=== PATIENT | female | born 1970 | race Caucasian/White ===

== ENCOUNTER → 2016-07-30 | Outpatient (CLI) | payer BC, OTHER ==
[2016-07-30 08:27] LABS: BASO % 0.7 % (0.0-1.0); EOS # 0.1 K/mm3 (0.0-0.50); EOS % 1.7 % (0.0-3.0); LARGE UNSTAINED CELL # 0.1 K/mm3 (0.0-0.4); LARGE UNSTAINED CELL % 3.5 % (0.0-4.0); LYMPH # 1.5 K/mm3 (1.5-4.5); LYMPH % 35.2 % (24.0-44.0); MEAN CORPUSCULAR HGB CONC 32.4 g/dl (32.0-36.5); MEAN CORPUSCULAR VOLUME 95.8 fl (80.0-96.0); MONO # 0.3 K/mm3 (0.0-0.8); MONO % 7.8 % (0.0-5.0); PLATELET COUNT, AUTOMATED 274 k/mm3 (150-450); RED CELL DISTRIBUTION WIDTH 12.5 % (11.5-14.5); WHITE BLOOD COUNT 3.8 K/mm3 (4.0-10.0)
[2016-07-30 08:56] LABS: ALBUMIN 3.7 GM/DL (3.2-5.2); ALBUMIN/GLOBULIN RATIO 1.37 (1.00-1.93); ALKALINE PHOSPHATASE 63 U/L (45-117); ALT/SGPT 22 U/L (12-78); ANION GAP 8 MEQ/L (8-16); AST/SGOT 23 U/L (15-37); BILIRUBIN,TOTAL 0.3 MG/DL (0.2-1.0); BLOOD UREA NITROGEN 13 MG/DL (7-18); CALCIUM LEVEL 8.5 MG/DL (8.5-10.1); CARBON DIOXIDE LEVEL 28 MEQ/L (21-32); CHLORIDE LEVEL 108 MEQ/L (98-107); CHOLESTEROL LEVEL 174 MG/DL (<200); CREATININE FOR GFR 0.68 MG/DL (0.55-1.02); GLOMERULAR FILTRATION RATE > 60.0 (>58); GLUCOSE, FASTING 90 MG/DL (70-105); POTASSIUM SERUM 4.1 MEQ/L (3.5-5.1); SODIUM LEVEL 144 MEQ/L (136-145); TOTAL PROTEIN 6.4 GM/DL (6.4-8.2); TRIGLYCERIDES LEVEL 61 MG/DL (<150)
[2016-07-30 09:40] LABS: FOLATE > 24.0 NG/ML; VITAMIN B12 LEVEL 443 PG/ML
== END ==
LOC: M LAB 07:55
PROVIDERS: ATTEND Emergency Medicine
DX: Z98.84 Bariatric surgery status (principal)

== ENCOUNTER → 2017-03-29 | Outpatient (CLI) | payer BC, OTHER ==
[2017-04-01 00:08] LABS: HSV TYPE I IgM AB <1:10 titer (<1:10); HSV TYPE II IgM ABY <1:10 titer (<1:10)
== END ==
LOC: M LAB 10:23
PROVIDERS: ATTEND Nurse Practitioner Women's Health
DX: Z11.3 Encounter for screening for infections with a predominantly sexual mode of transmission (principal)

== ENCOUNTER → 2017-09-15 | Outpatient (CLI) | payer BC | LOC: M RAD 10:08 | DX: N92.1 Excessive and frequent menstruation with irregular cycle (principal); N83.202 Unspecified ovarian cyst, left side | CPT/HCPCS: 76856 ==

== ENCOUNTER → 2018-05-02 | Outpatient (REF) | payer BC ==
[2018-05-02 14:12] LABS: BASO % 0.4 % (0.0-1.0); EOS # 0.1 10^3/uL (0.0-0.50); HEMATOCRIT 35.1 % (36.0-47.0); HEMOGLOBIN 11.9 g/dl (12.0-15.5); IMMATURE GRANULOCYTE % 0.4 % (0-3.0); LYMPH # 1.4 10^3/uL (1.5-4.5); MEAN CORPUSCULAR HEMOGLOBIN 33.2 pg (27.0-33.0); MEAN CORPUSCULAR HGB CONC 33.9 g/dl (32.0-36.5); MONO # 0.4 10^3/uL (0.0-0.8); MONO % 9.1 % (0.0-5.0); NEUTROPHILS % 61.1 % (36.0-66.0); PLATELET COUNT, AUTOMATED 254 10^3/uL (150-450); RED BLOOD COUNT 3.58 10^6/uL (4.00-5.40); RED CELL DISTRIBUTION WIDTH 11.9 % (11.5-14.5); WHITE BLOOD COUNT 4.8 10^3/uL (4.0-10.0)
[2018-05-02 14:19] LABS: FERRITIN 21 NG/ML (8-252); IRON (FE) 143 UG/DL (50-170); PERCENT SATURATION 45.8 % (13.2-45.0); TOTAL IRON BINDING CAPACITY 312 UG/DL (250-450)
[2018-05-02 14:26] LABS: VITAMIN B12 LEVEL 762 PG/ML
[2018-05-02 14:27] LABS: FOLATE 12.6 NG/ML
== END ==
LOC: M LABDRAW1 12:48
DX: M79.662 Pain in left lower leg (principal)

== ENCOUNTER → 2018-06-05 | Outpatient (CLI) | payer BC ==
[~2018-06-05] MED LIST: FERR325T3 PO; FLIN1CHW PO; FLUO40CA; LORA1TAB12; PANT40TA3; VITA500T PO; VITA500T3 PO
[2018-06-05 15:08] LABS: INR 0.87; PROTHROMBIN TIME 11.9 SECONDS (12.1-14.4)
== END ==
LOC: M LAB 14:20
PROVIDERS: ATTEND Physician Assistant
DX: S80.10XA Contusion of unspecified lower leg, initial encounter (principal); X58.XXXA Exposure to other specified factors, initial encounter; Y92.89 Other specified places as the place of occurrence of the external cause

== ENCOUNTER → 2019-03-22 | Outpatient (CLI) | payer BC ==
[~2019-03-22] MED LIST changes: +CYAN500T8 PO; -VITA500T3 PO
[2019-03-22 08:46] LABS: BASO # 0.1 10^3/uL (0.0-0.2); BASO % 1.1 % (0.0-1.0); EOS # 0.1 10^3/uL (0.0-0.5); EOS % 1.1 % (0.0-3.0); HEMATOCRIT 36.1 % (36.0-47.0); LYMPH # 1.6 10^3/uL (1.5-5.0); MEAN CORPUSCULAR HEMOGLOBIN 33.3 pg (27.0-33.0); MEAN CORPUSCULAR HGB CONC 33.2 g/dl (32.0-36.5); MEAN CORPUSCULAR VOLUME 100.3 fl (80.0-96.0); MONO # 0.5 10^3/uL (0.0-0.8); NEUTROPHILS # 2.4 10^3/uL (1.5-8.5); NEUTROPHILS % 51.8 % (36.0-66.0); PLATELET COUNT, AUTOMATED 250 10^3/uL (150-450); WHITE BLOOD COUNT 4.5 10^3/uL (4.0-10.0)
[2019-03-22 09:22] LABS: ALBUMIN 3.8 GM/DL (3.2-5.2); ALT/SGPT 21 U/L (12-78); BILIRUBIN,TOTAL 0.4 MG/DL (0.2-1.0); BLOOD UREA NITROGEN 17 MG/DL (7-18); CALCIUM LEVEL 8.8 MG/DL (8.5-10.1); CARBON DIOXIDE LEVEL 28 MEQ/L (21-32); CHLORIDE LEVEL 107 MEQ/L (98-107); CHOLESTEROL LEVEL 173 MG/DL (<200); CHOLESTEROL RISK RATIO 1.821 (<5); CREATININE FOR GFR 0.66 MG/DL (0.55-1.30); GLOMERULAR FILTRATION RATE > 60.0 (>58); GLUCOSE, FASTING 91 MG/DL (70-100); HDL CHOLESTEROL 95 MG/DL (>40); LDL CHOLESTEROL 61 MG/DL (<100); NON-HDL-C 78 MG/DL; POTASSIUM SERUM 4.4 MEQ/L (3.5-5.1); SODIUM LEVEL 141 MEQ/L (136-145); THYROID STIMULATING HORMONE 0.897 uIU/ML (0.358-3.740); TOTAL PROTEIN 6.9 GM/DL (6.4-8.2); TRIGLYCERIDES LEVEL 84 MG/DL (<150)
== END ==
LOC: M LAB 08:08
PROVIDERS: ATTEND Physician Assistant
DX: Z00.00 Encounter for general adult medical examination without abnormal findings (principal); Z98.84 Bariatric surgery status

== ENCOUNTER → 2019-12-11 | Outpatient (CLI) | payer BC ==
[~2019-12-11] MED LIST changes: -LORA1TAB12; +LORA1TAB4; +VITA-243 PO; -VITA500T PO
[2019-12-11 18:53] LABS: BASO % 0.7 % (0.0-1.0); EOS % 0.7 % (0.0-3.0); HEMATOCRIT 36.8 % (36.0-47.0); HEMOGLOBIN 12.4 g/dl (12.0-15.5); LYMPH # 1.9 10^3/uL (1.5-5.0); LYMPH % 35.2 % (24.0-44.0); MEAN CORPUSCULAR HGB CONC 33.7 g/dl (32.0-36.5); MEAN CORPUSCULAR VOLUME 97.9 fl (80.0-96.0); MONO # 0.4 10^3/uL (0.0-0.8); MONO % 7.8 % (0.0-5.0); NEUTROPHILS % 55.4 % (36.0-66.0); PLATELET COUNT, AUTOMATED 276 10^3/uL (150-450); RED BLOOD COUNT 3.76 10^6/uL (4.00-5.40); WHITE BLOOD COUNT 5.4 10^3/uL (4.0-10.0)
[2019-12-11 19:10] LABS: HEMOGLOBIN A1c 5.1 %
[2019-12-11 19:23] LABS: ALBUMIN 3.9 GM/DL (3.2-5.2); ALT/SGPT 22 U/L (12-78); BILIRUBIN,TOTAL 0.3 MG/DL (0.2-1.0); BLOOD UREA NITROGEN 14 MG/DL (7-18); CARBON DIOXIDE LEVEL 28 MEQ/L (21-32); CHLORIDE LEVEL 107 MEQ/L (98-107); CREATININE FOR GFR 0.59 MG/DL (0.55-1.30); GLOMERULAR FILTRATION RATE > 60.0 (>51); GLUCOSE, FASTING 82 MG/DL (70-100); POTASSIUM SERUM 4.7 MEQ/L (3.5-5.1); SODIUM LEVEL 139 MEQ/L (136-145); TOTAL PROTEIN 7.1 GM/DL (6.4-8.2)
== END ==
LOC: M LAB 16:31
PROVIDERS: ATTEND Physician Assistant
DX: F43.23 Adjustment disorder with mixed anxiety and depressed mood (principal); K21.9 Gastro-esophageal reflux disease without esophagitis; Z98.84 Bariatric surgery status

== ENCOUNTER 2020-02-25 10:35 | Emergency (ER) | payer BC ==
[~2020-02-25] VITALS: Ht 165.1 cm; Wt 102.3 kg
[~2020-02-25 10:35] MED LIST changes: +PANT40TA29; -PANT40TA3
[2020-02-25] MEDS ORDERED: NS 1,000 ML IV ONE (11:00)
[2020-02-25] MEDS ORDERED: WELLTAB40 PO (11:09)
--- NOTE | 2020-02-25 11:27 | REPVR ---
PROCEDURE INFORMATION: Exam: XR Chest, 1 View Exam date and time: 02/25/2020 11:08 AM Age: 49 years old Clinical indication: Other: Palpitations; Additional info: Chest pain TECHNIQUE: Imaging protocol: XR of the chest Views: 1 view. COMPARISON: CR CHEST 2 VIEW 11/23/2015 12:02 PM FINDINGS: Lungs: Question new ovoid nodular opacity at the medial left base measuring up to 3.5 cm versus superimposition of shadows. The lungs are otherwise clear. Pleural space: Unremarkable. No pleural effusion. No pneumothorax. Heart/Mediastinum: The cardiomediastinal silhouette is fairly stable in appearance, allowing for differences in technique. Bones/joints: Unremarkable. IMPRESSION: Question 3.5 cm ovoid nodular opacity at the medial left base versus superimposition of shadows, new since 11/23/15. Correlate with PA and lateral views for better assessment if CT is not performed. Electronically signed by: Maximilian Agudelo On 02/25/2020 11:27:12 AM
[2020-02-25 11:49] LABS: BASO % 0.6 % (0.0-1.0); EOS # 0.1 10^3/uL (0.0-0.5); HEMATOCRIT 39.5 % (36.0-47.0); HEMOGLOBIN 13.4 g/dl (12.0-15.5); LYMPH # 1.4 10^3/uL (1.5-5.0); LYMPH % 27.1 % (24.0-44.0); MEAN CORPUSCULAR HEMOGLOBIN 32.5 pg (27.0-33.0); MEAN CORPUSCULAR HGB CONC 33.9 g/dl (32.0-36.5); MEAN CORPUSCULAR VOLUME 95.9 fl (80.0-96.0); MONO # 0.4 10^3/uL (0.0-0.8); MONO % 7.9 % (0.0-5.0); NEUTROPHILS # 3.2 10^3/uL (1.5-8.5); NEUTROPHILS % 63.2 % (36.0-66.0); PLATELET COUNT, AUTOMATED 268 10^3/uL (150-450); RED BLOOD COUNT 4.12 10^6/uL (4.00-5.40); WHITE BLOOD COUNT 5.1 10^3/uL (4.0-10.0)
[2020-02-25 12:01] LABS: AMPHETAMINES LEVEL URINE NEGATIVE (NEGATIVE); BARBITURATES URINE NEGATIVE (NEGATIVE); BENZODIAZEPINES URINE NEGATIVE (NEGATIVE); CANNABINOIDS URINE NEGATIVE (NEGATIVE); COCAINE METABOLITE URINE NEGATIVE (NEGATIVE); METHADONE URINE NEGATIVE (NEGATIVE); OPIATES URINE NEGATIVE (NEGATIVE); PHENCYCLIDINE URINE NEGATIVE (NEGATIVE)
[2020-02-25 12:02] LABS: INR 1.02; PROTHROMBIN TIME 13.6 SECONDS (11.8-14.0)
[2020-02-25 12:03] LABS: PARTIAL THROMBOPLASTIN TIME 27.8 SECONDS (25.0-38.4)
[2020-02-25 12:10] LABS: ALT/SGPT 17 U/L (12-78); BILIRUBIN,DIRECT 0.2 MG/DL (0.0-0.2); BILIRUBIN,TOTAL 0.4 MG/DL (0.2-1.0); BLOOD UREA NITROGEN 9 MG/DL (7-18); CALCIUM LEVEL 9.3 MG/DL (8.5-10.1); CARBON DIOXIDE LEVEL 26 MEQ/L (21-32); CHLORIDE LEVEL 110 MEQ/L (98-107); CK-MB VALUE MASS 1.9 NG/ML (<3.6); CPK CREATINE PHOSPHOKINASE 100 U/L (26-192); CREATININE FOR GFR 0.63 MG/DL (0.55-1.30); ETHYL ALCOHOL (ETHANOL) < 0.003 % (0.000-0.010); FREE T4 1.03 NG/DL (0.76-1.46); GLOMERULAR FILTRATION RATE > 60.0 (>51); GLUCOSE, FASTING 105 MG/DL (70-100); LIPASE 59 U/L (73-393); MAGNESIUM LEVEL 2.1 MG/DL (1.8-2.4); NT-PRO BNP 80 PG/ML (<125); POTASSIUM SERUM 4.3 MEQ/L (3.5-5.1); SODIUM LEVEL 141 MEQ/L (136-145); TROPONIN I 0.05 NG/ML (< 0.10)
[2020-02-25 12:35] LABS: ERYTHROCYTE SEDIMENTATION RATE 6 mm/hr (0-30)
[2020-02-25] MEDS ORDERED: ISOVUE-370 76% 100ML VIAL As Ordered ONE (13:03)
--- NOTE | 2020-02-25 13:41 | REPVR ---
PROCEDURE INFORMATION: Exam: CT Angiography Chest With Contrast Exam date and time: 02/25/2020 1:26 PM Age: 49 years old Clinical indication: Tachypnea; Additional info: Tachycardia TECHNIQUE: Imaging protocol: Computed tomographic angiography of the chest with intravenous contrast. 3D rendering (Not supervised by radiologist): MIP and/or 3D reconstructed images were created by the technologist. Radiation optimization: All CT scans at this facility use at least one of these dose optimization techniques: automated exposure control; mA and/or kV adjustment per patient size (includes targeted exams where dose is matched to clinical indication); or iterative reconstruction. Contrast material: ISOVUE 370; Contrast volume: 100 ml; Contrast route: INTRAVENOUS (IV); COMPARISON: CR PORTABLE CHEST X-RAY 02/25/2020 11:02 AM FINDINGS: Pulmonary arteries: The peripheral pulmonary arteries are not well opacified. No central embolus is identified. Aorta: The thoracic aorta is nonaneurysmal. Lungs: There is mild bibasilar atelectasis/scarring. The lungs are otherwise clear. The central airways appear patent. Pleural space: Unremarkable. No pneumothorax. No pleural effusion. Heart: The RV/LV ratio is less than 1. Lymph nodes: Unremarkable. No enlarged lymph nodes. Gallbladder and bile ducts: Cholecystectomy clips are present. Stomach and bowel: There are operative changes of the proximal stomach, probably gastric bypass.There is a small hiatal hernia. Bones/joints: Degenerative changes involve the spine. Soft tissues: Unremarkable. IMPRESSION: 1. No central pulmonary embolus identified, with the peripheral pulmonary arteries not well opacified. No evidence for cardiogenic compromise. 2. No acute pulmonary disease. 3. Small hiatal hernia. This may account for opacity on radiographs of the same day. Electronically signed by: Maximilian Agudelo On 02/25/2020 13:41:25 PM
[2020-02-25] MEDS ORDERED: METO1TAB87 PO (14:13)
[2020-02-25] MEDS ORDERED: METOPROLOL TART 25 MG TABLET PO ONE (14:15)
[2020-02-25 14:17] VITALS: BP 139/81
[2020-02-25 15:03] VITALS: BP 127/67
--- NOTE | 2020-02-27 10:56 | ED PDOC ---
Post-Departure Follow-Up cxr faxed to melodie bhatia for fu Jeyson Pacheco MD Feb 27, 2020 10:56
--- NOTE | 2020-02-29 16:00 | ECGEPIP ---
[facility] - ED Test Date: 2020-02-25 Pat Name: LOTUS DONALDSON Department: Room: - Gender: Female [employer]: arslan : 1970 Requested By: NORA Wilson Order Number: [id number] Reading MD: Ida Vásquez Measurements Intervals [place] Rate: 115 P: 17 DC: 154 QRS: 37 QRSD: 77 T: 18 QT: 316 QTc: 438 Interpretive Statements SINUS TACHYCARDIA ABNORMAL RHYTHM ECG SEE SCANNED DOWNTIME REPORT
== END 2020-02-25 15:07 | disposition home or self-care (01) ==
LOC: M ED 10:35 → EDBD 10:35 → M ED 15:07
DX: I47.1 Supraventricular tachycardia (principal); R00.0 Tachycardia, unspecified; R94.31 Abnormal electrocardiogram [ECG] [EKG]; F41.9 Anxiety disorder, unspecified; F32.9 Major depressive disorder, single episode, unspecified; N32.81 Overactive bladder; Z98.84 Bariatric surgery status
CPT/HCPCS: 36415; 71045; 71275; 80048; 80076; 80307; 81001; 82550; 82553; 83690; 83735; 83880; 84439; 84443; 84484; 85025; 85610; 85652; 85730; 86140; 87040; 93005; 93041; 94760; 96360; 96361; 99284; G0480; Q9967

== ENCOUNTER → 2020-03-19 | Outpatient (RCR) | payer BC ==
[~2020-03-19] MED LIST changes: +METO1TAB87 PO; +WELLTAB40 PO
== END ==
LOC: M PT 03-12 12:32
PROVIDERS: ATTEND Orthopaedic Surgery
DX: M54.5 Low back pain (principal); Z87.39 Personal history of other diseases of the musculoskeletal system and connective tissue

== ENCOUNTER 2020-04-14 12:00 | Outpatient (RCR) | payer BC | END 2020-04-19 | LOC: M PT 12:00 | PROVIDERS: ATTEND Orthopaedic Surgery | DX: M54.5 Low back pain (principal); Z87.39 Personal history of other diseases of the musculoskeletal system and connective tissue ==

== ENCOUNTER → 2020-04-23 | Outpatient (CLI) | payer SELFPAY | LOC: M LABSMTC 10:08 | PROVIDERS: ATTEND Pediatrics | DX: Z20.828 Contact with and (suspected) exposure to other viral communicable diseases (principal) ==

== ENCOUNTER 2020-05-06 12:59 | Outpatient (RCR) | payer BC ==
[~2020-05-06 12:59] MED LIST changes: +CYAN500T14 PO; -CYAN500T8 PO
== END 2020-05-19 ==
LOC: M PT 12:59
PROVIDERS: ATTEND Orthopaedic Surgery
DX: M54.16 Radiculopathy, lumbar region (principal)

== ENCOUNTER → 2020-05-06 | Outpatient (CLI) | payer BC ==
--- NOTE | 2020-05-07 01:16 | REPVR ---
PROCEDURE INFORMATION: Exam: MR Lumbar Spine Without Contrast. Exam date and time: 05/06/2020 7:02 PM Age: 49 years old Clinical indication: Low back pain; Additional info: Ddd, low back pain TECHNIQUE: Imaging protocol: Multiplanar magnetic resonance images of the lumbar spine without intravenous contrast. COMPARISON: No relevant prior studies available. FINDINGS: Vertebrae: The lumbar vertebral bodies are normal in height. There is a focus of hypointensity within the left L5 pars process, and spondylolysis is considered. Grade 1 anterolisthesis of L4 on L5. Scattered foci of T1 hyperintensity are identified within lumbar and lower thoracic vertebral bodies, consistent with hemangiomas or focal depositions of fatty marrow. There is a [id number] compression fracture involving the T12 vertebral body, with a prominent concavity of the superior endplate and anterior wedging. No acute marrow edema is identified, consistent with a chronic deformity. Marrow edema is identified adjacent to the bilateral L5-S1 facet joints. Additional marrow edema is seen within the bilateral L4 pedicles and bone marrow adjacent to the superior articulating L4 facet on the left side. These findings are likely secondary to arthropathy, post-traumatic, or reactive. Infection is within the differential. Spinal cord: The distal end of the conus medullaris ends at T12-L1, normal in position. Multilevel findings: Degenerative disc disease is noted at multiple lumbar and lower thoracic levels, with a decrease in the T2 signal intensity of the discs as well as disc bulging. L1-L2: Minimal disc bulging, without significant narrowing of the thecal sac or neural foramina. Mild bilateral facet arthropathy. L2-L3: Mild bilateral facet arthropathy. Minimal disc bulging, without significant narrowing of the thecal sac or neural foramina. L3-L4: Mild bilateral facet arthropathy. Minimal disc bulging, without significant narrowing of the thecal sac or neural foramina. L4-L5: Bilateral facet arthropathy with hypertrophy of the ligamentum flavum. A broad-based disc bulge is identified causing flattening of the ventral border of the thecal sac without significant overall narrowing. There is mild bulging into the neural foramina, without significant narrowing. L5-S1: Bilateral facet arthropathy. Minimal disc bulging, without significant narrowing of the thecal sac or neural foramina. Sacrum/coccyx: Small sacral meningeal cysts are visualized. Reproductive: T2 hyperintense follicles or small cysts are partially visualized within the left adnexa. Soft tissues: Mild edema within the subcutaneous tissues posterior to the lumbar spine. IMPRESSION: 1. Marrow edema is identified adjacent to the bilateral L5-S1 facet joints. Additional marrow edema is seen within the bilateral L4 pedicles and bone marrow adjacent to the superior articulating L4 facet on the left side. These findings are likely secondary to arthropathy, post-traumatic, or reactive. Infection is within the differential. Clinical correlation recommended. 2. There is a focus of hypointensity within the left L5 pars process, and spondylolysis is considered. 3. Grade 1 anterolisthesis of L4 on L5. 4. Degenerative changes are noted at multiple lumbar and lower thoracic levels, as described above. 5. No significant narrowing of the thecal sac or neural foramina at any lumbar level. 6. Chronic compression deformity involving the T12 vertebral body, with a prominent focal concavity of the superior endplate. 7. Additional findings described above. Electronically signed by: Charlie Nayak On 05/07/2020 01:15:44 AM
== END ==
LOC: M RAD 18:02
PROVIDERS: ATTEND Physician Assistant
DX: M51.26 Other intervertebral disc displacement, lumbar region (principal); M51.36 Other intervertebral disc degeneration, lumbar region; M51.34 Other intervertebral disc degeneration, thoracic region

== ENCOUNTER 2020-05-21 16:39 | Outpatient (RCR) | payer BC | END 2020-06-19 | LOC: M PT 16:39 | PROVIDERS: ATTEND Orthopaedic Surgery | DX: Z51.89 Encounter for other specified aftercare (principal); M54.5 Low back pain ==

== ENCOUNTER → 2020-07-02 | Outpatient (CLI) | payer BC ==
[2020-07-02 18:54] LABS: BLOOD UREA NITROGEN 10 MG/DL (7-18); CREATININE FOR GFR 0.57 MG/DL (0.55-1.30); GLOMERULAR FILTRATION RATE > 60.0 (>51)
== END ==
LOC: M LAB 18:04
PROVIDERS: ATTEND Pain Medicine Interventional Pain Medicine
DX: M47.817 Spondylosis without myelopathy or radiculopathy, lumbosacral region (principal)

== ENCOUNTER → 2020-07-07 | Outpatient (CLI) | payer BC ==
[~2020-07-07] MED LIST changes: +PROHANCE 279.3MG/ML 15ML VIAL As Ordered ONE; +PROHANCE 279.3MG/ML 5ML VIAL As Ordered ONE
--- NOTE | 2020-07-07 17:29 | REP ---
INDICATION: RADICULOPATHY, LUMBAR REGION. COMPARISON: Comparison MRI study May 06, 2020.. TECHNIQUE: Sagittal and axial T1 and T2-weighted scans are acquired in the usual fashion with and without fat saturation. Sequences include spin echo, turbo spin-echo, and STIR imaging sequences. Contrast enhancement dose is 19 mL of intravenous ProHance. Postcontrast axial and sagittal images are included. FINDINGS: Lumbar vertebral bodyp heights no extra-spinal abnormality is appreciated. There are mild degenerative disc changes at L1-L2 with minimal diffuse disc bulging unchanged. The L2-3 disc level is unremarkable. At L3-4, there is mild disc space narrowing and decreased signal intensity. Minimal facet hypertrophy is present bilaterally at L3-4 unchanged. At L4-5, I do not see spondylolysis but there is 2 mm spondylolisthesis of L4 anterior with respect L5 as discussed above. No neural foraminal narrowing is seen. There is moderate osteoarthritic facet hypertrophy and some facet joint fluid is visible particularly on the right. This is similar to the prior study. There is associated edema in the pedicles at L5 bilaterally and in the left pedicle at L4 identical in appearance to the May 06, 2020 study. There is some contrast enhancement associated with these edematous areas and in the soft tissues adjacent to the L4-5 facets. There is a small cyst associated with the left L4-5 facet which is intraosseous. No intraspinal cyst is seen. No disc protrusion is noted. No neural foraminal narrowing is seen. At L5-S1, there is facet hypertrophy bilaterally again noted no significant fluid or edema is seen associated with L5-S1. No neural foraminal narrowing or disc protrusion is seen. Postcontrast study shows no other area of abnormal contrast enhancement. Are maintained. Alignment is unchanged. A minimal grade 1 L4-5 spondylolisthesis is present. This is unchanged from the prior study and 2-3 mm in extent. There is mild old wedging at T12 with degenerative disc disease at T11-12 and anterior spurring. There is mild diffuse bulging of the T11-12 disc. The tip of the conus medullaris remains normal in position and appearance at T12-L1. IMPRESSION: Findings consistent with osteoarthritic facet disease most pronounced at L4-5 bilaterally. There is facet joint fluid and reactive marrow edema associated with the facet arthropathy. These findings are unchanged from the May 06, 2020 prior study. Lack of change mitigates against infectious etiology. 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 Degenerative disc changes and mild stable 2 mm L4-5 spondylolisthesis is seen without evidence of spondylolysis. There is a Schmorl's node at the superior endplate of T12 and degenerative disc disease is noted at T11-12. Mild old wedging at T12. <Electronically signed by Ang Nails > 07/07/20 [id number]
== END ==
LOC: M RAD 15:13
PROVIDERS: ATTEND Pain Medicine Interventional Pain Medicine
DX: M51.16 Intervertebral disc disorders with radiculopathy, lumbar region (principal); M43.16 Spondylolisthesis, lumbar region
CPT/HCPCS: 72158; A9576

== ENCOUNTER 2020-08-31 19:08 | Emergency (ER) | payer BC ==
[~2020-08-31] VITALS: Ht 165.1 cm; Wt 99.0 kg
[~2020-08-31 19:08] MED LIST changes: -PROHANCE 279.3MG/ML 15ML VIAL As Ordered ONE; -PROHANCE 279.3MG/ML 5ML VIAL As Ordered ONE
[2020-08-31] MEDS ORDERED: FAMO40TA3 PO (19:26)
[2020-08-31] MEDS ORDERED: FLUORESCEIN OPHTH 1 MG STRIP OS ONE (20:20)
[2020-08-31] MEDS ORDERED: TETRACAINE 0.5% OPHTH SOLN 4ML OS ONE (20:20)
[2020-08-31 21:23] VITALS: BP 139/88
== END 2020-08-31 21:24 | disposition home or self-care (01) ==
LOC: M ED 19:08
DX: H43.392 Other vitreous opacities, left eye (principal); H53.8 Other visual disturbances; Z79.899 Other long term (current) drug therapy

== ENCOUNTER → 2020-11-04 | Outpatient (CLI) | payer BC ==
[~2020-11-04] MED LIST changes: +FAMO40TA3 PO
[2020-11-04 17:13] LABS: BASO % 0.5 % (0.0-1.0); EOS # 0.1 10^3/uL (0.0-0.5); EOS % 1.2 % (0.0-3.0); HEMATOCRIT 36.9 % (36.0-47.0); HEMOGLOBIN 11.8 g/dl (12.0-15.5); LYMPH # 2.3 10^3/uL (1.5-5.0); LYMPH % 41.6 % (24.0-44.0); MEAN CORPUSCULAR HEMOGLOBIN 30.7 pg (27.0-33.0); MEAN CORPUSCULAR VOLUME 96.1 fl (80.0-96.0); MONO # 0.4 10^3/uL (0.0-0.8); MONO % 7.6 % (2.0-8.0); NEUTROPHILS # 2.7 10^3/uL (1.5-8.5); NEUTROPHILS % 48.7 % (36.0-66.0); PLATELET COUNT, AUTOMATED 263 10^3/uL (150-450); RED BLOOD COUNT 3.84 10^6/uL (4.00-5.40); WHITE BLOOD COUNT 5.6 10^3/uL (4.0-10.0)
[2020-11-04 17:33] LABS: ALBUMIN 3.9 GM/DL (3.2-5.2); ALT/SGPT 19 U/L (12-78); BILIRUBIN,TOTAL 0.3 MG/DL (0.2-1.0); BLOOD UREA NITROGEN 9 MG/DL (7-18); CALCIUM LEVEL 8.8 MG/DL (8.5-10.1); CARBON DIOXIDE LEVEL 25 MEQ/L (21-32); CHLORIDE LEVEL 108 MEQ/L (98-107); CHOLESTEROL LEVEL 200 MG/DL (<200); CHOLESTEROL RISK RATIO 2.247 (<5); CREATININE FOR GFR 0.54 MG/DL (0.55-1.30); GLOMERULAR FILTRATION RATE > 60.0 (>51); GLUCOSE, FASTING 85 MG/DL (70-100); HDL CHOLESTEROL 89 MG/DL (>40); LDL CHOLESTEROL 76 MG/DL (<100); NON-HDL-C 111 MG/DL; POTASSIUM SERUM 4.7 MEQ/L (3.5-5.1); RHEUMATOID FACTOR QUANT < 10.0 IU/ML (<15.0); SODIUM LEVEL 142 MEQ/L (136-145); TOTAL PROTEIN 6.6 GM/DL (6.4-8.2); TRIGLYCERIDES LEVEL 176 MG/DL (<150)
[2020-11-04 17:42] LABS: ERYTHROCYTE SEDIMENTATION RATE 11 mm/hr (0-30)
[2020-11-06 17:29] LABS: ANTINUCLEAR ANTIBODIES DIRECT Negative (Negative); Lyme Disease IgG/IgM Antibodie <0.91 ISR (0.00-0.90); Lyme Disease IgM Ab Quantitati <0.80 index (0.00-0.79)
== END ==
LOC: M LAB 16:04
PROVIDERS: ATTEND Nurse Practitioner Family
DX: M12.9 Arthropathy, unspecified (principal)

== ENCOUNTER → 2021-04-20 | Outpatient (REF) ==
[2021-04-20 11:43] LABS: RSV AMPLIFICATION NEGATIVE (NEGATIVE)
== END ==
LOC: M EMP 09:53
PROVIDERS: ATTEND Family Medicine
DX: Z20.822 Contact with and (suspected) exposure to COVID-19 (principal)

== ENCOUNTER → 2021-06-14 | Outpatient (REF) | LOC: M EMP 10:12 | PROVIDERS: ATTEND Family Medicine | DX: Z20.828 Contact with and (suspected) exposure to other viral communicable diseases (principal) ==

== ENCOUNTER 2021-06-15 13:46 | Outpatient (CLI) | payer BC ==
[~2021-06-15] VITALS: Ht 165.1 cm; Wt 95.3 kg
[~2021-06-15 13:46] MED LIST changes: +ALBUTEROL 90 MCG/ACT 8GM HFA INHALER INH PRN; +ALBUTEROL SULFATE 2.5 MG/0.5 ML INH NEB SOLN INH PRN; +EPINEPHrine INJ 1 MG/ML 1ML AMP IM PRN; +NS 1,000 ML IV SCH; +diphenhydrAMINE 50MG/ML VIAL (J1200) IV PRN; +methylPREDNISolone 125MG 2ML VIAL IV PRN
[2021-06-15] MEDS ORDERED: CASIRIVIMAB/IMDEVIMAB 1,200 MG in NS 250 ML IV ONE (14:00)
[2021-06-15 14:13] VITALS: BP 152/90
[2021-06-15 14:43] VITALS: BP 136/70
[2021-06-15 15:13] VITALS: BP 126/74
[2021-06-15 16:13] VITALS: BP 146/87
== END 2021-06-15 18:47 | disposition home or self-care (01) ==
LOC: M OPCLI4PR 13:46
PROVIDERS: ATTEND Nurse Practitioner Family
DX: U07.1 COVID-19 (principal)

== ENCOUNTER 2021-06-22 12:42 | Emergency (ER) | payer BC ==
[~2021-06-22] VITALS: Ht 165.1 cm; Wt 96.1 kg
[~2021-06-22 12:42] MED LIST changes: -ALBUTEROL 90 MCG/ACT 8GM HFA INHALER INH PRN; -ALBUTEROL SULFATE 2.5 MG/0.5 ML INH NEB SOLN INH PRN; -EPINEPHrine INJ 1 MG/ML 1ML AMP IM PRN; -NS 1,000 ML IV SCH; -diphenhydrAMINE 50MG/ML VIAL (J1200) IV PRN; -methylPREDNISolone 125MG 2ML VIAL IV PRN
[2021-06-22] MEDS ORDERED: HYDR-3363 (14:01)
[2021-06-22] MEDS ORDERED: KETOROLAC 30 MG/ML 1ML VIAL IV ONE (16:20)
[2021-06-22] MEDS ORDERED: NS 1,000 ML IV ONE (16:20)
--- NOTE | 2021-06-22 17:00 | REP ---
INDICATION: covid+, eval for pneumonia. COMPARISON: 02/25/2020 also portable TECHNIQUE: Portable FINDINGS: The technique utilized in obtaining the radiograph has magnified the cardiac silhouette and accentuated the interstitial markings. The superior mediastinal structures are midline. The cardiac silhouette is unremarkable in size, shape, and position. The diaphragmatic surfaces of the lungs are regular, and the costophrenic angles are clear. The pulmonary castelan are clear. The imaged osseous structures are intact. The CP angles have not been included on the radiograph right greater than left. IMPRESSION: There is no acute cardiopulmonary disease. Limitations as described above. <Electronically signed by Charli Guerra > 06/22/21 1709
[2021-06-22 17:32] LABS: BASO % 0.6 % (0.0-1.0); EOS # 0.1 10^3/uL (0.0-0.5); EOS % 0.8 % (0.0-3.0); HEMATOCRIT 35.7 % (36.0-47.0); HEMOGLOBIN 11.9 g/dl (12.0-15.5); LYMPH # 1.8 10^3/uL (1.5-5.0); LYMPH % 28.2 % (24.0-44.0); MEAN CORPUSCULAR HEMOGLOBIN 31.9 pg (27.0-33.0); MEAN CORPUSCULAR HGB CONC 33.3 g/dl (32.0-36.5); MEAN CORPUSCULAR VOLUME 95.7 fl (80.0-96.0); MONO # 0.6 10^3/uL (0.0-0.8); MONO % 8.8 % (2.0-8.0); NEUTROPHILS % 61.3 % (36.0-66.0); PLATELET COUNT, AUTOMATED 271 10^3/uL (150-450); RED BLOOD COUNT 3.73 10^6/uL (4.00-5.40); WHITE BLOOD COUNT 6.5 10^3/uL (4.0-10.0)
[2021-06-22 17:39] LABS: BLOOD UREA NITROGEN 10 MG/DL (7-18); CALCIUM LEVEL 7.8 MG/DL (8.5-10.1); CARBON DIOXIDE LEVEL 24 MEQ/L (21-32); CHLORIDE LEVEL 113 MEQ/L (98-107); GLOMERULAR FILTRATION RATE > 60.0 (>51); GLUCOSE, FASTING 98 MG/DL (70-100); POTASSIUM SERUM 3.4 MEQ/L (3.5-5.1); SODIUM LEVEL 145 MEQ/L (136-145)
[2021-06-22] MEDS ORDERED: HYDR5LIQ2 PO (17:57)
[2021-06-22 18:54] VITALS: BP 140/86
== END 2021-06-22 18:57 | disposition home or self-care (01) ==
LOC: M ED 12:42
DX: U07.1 COVID-19 (principal); K21.9 Gastro-esophageal reflux disease without esophagitis; D64.9 Anemia, unspecified; F41.9 Anxiety disorder, unspecified; F32.9 Major depressive disorder, single episode, unspecified; Z98.84 Bariatric surgery status; Z79.899 Other long term (current) drug therapy
CPT/HCPCS: 71045; 80048; 85025; 87430; 96361; 96374; 99284; J1885

== ENCOUNTER 2021-07-05 11:40 | Emergency (ER) | payer BC ==
[~2021-07-05] VITALS: Ht 165.1 cm; Wt 93.2 kg
[~2021-07-05 11:40] MED LIST changes: +HYDR-3363; +HYDR5LIQ2 PO
[2021-07-05 12:34] LABS: BASO % 0.5 % (0.0-1.0); EOS % 0.6 % (0.0-3.0); HEMATOCRIT 37.8 % (36.0-47.0); HEMOGLOBIN 12.5 g/dl (12.0-15.5); LYMPH # 1.6 10^3/uL (1.5-5.0); LYMPH % 26.6 % (24.0-44.0); MEAN CORPUSCULAR HEMOGLOBIN 31.5 pg (27.0-33.0); MEAN CORPUSCULAR HGB CONC 33.1 g/dl (32.0-36.5); MEAN CORPUSCULAR VOLUME 95.2 fl (80.0-96.0); MONO # 0.5 10^3/uL (0.0-0.8); MONO % 7.9 % (2.0-8.0); NEUTROPHILS % 64.1 % (36.0-66.0); PLATELET COUNT, AUTOMATED 341 10^3/uL (150-450); RED BLOOD COUNT 3.97 10^6/uL (4.00-5.40); WHITE BLOOD COUNT 6.2 10^3/uL (4.0-10.0)
[2021-07-05] MEDS ORDERED: LIDOCAINE 5% (LIDODERM) PATCH TD ONE (12:50)
[2021-07-05] MEDS ORDERED: MORPHINE 4 MG/ML 1ML VIAL/SYRINGE (J2270) IV ONE (12:50)
[2021-07-05 12:59] LABS: CK-MB VALUE MASS < 1.0 NG/ML (<3.6); CPK CREATINE PHOSPHOKINASE 82 U/L (26-192); MB/CK RELATIVE INDEX 1.22 (< OR =4)
[2021-07-05 13:07] LABS: ALBUMIN 3.5 GM/DL (3.2-5.2); ALT/SGPT 26 U/L (12-78); BILIRUBIN,DIRECT 0.1 MG/DL (0.0-0.2); BILIRUBIN,TOTAL 0.3 MG/DL (0.2-1.0); BLOOD UREA NITROGEN 15 MG/DL (7-18); CALCIUM LEVEL 8.8 MG/DL (8.5-10.1); CARBON DIOXIDE LEVEL 27 MEQ/L (21-32); CHLORIDE LEVEL 108 MEQ/L (98-107); CREATININE FOR GFR 0.56 MG/DL (0.55-1.30); FREE T4 1.06 NG/DL (0.76-1.46); GLOMERULAR FILTRATION RATE > 60.0 (>51); GLUCOSE, FASTING 104 MG/DL (70-100); LIPASE 40 U/L (73-393); POTASSIUM SERUM 3.9 MEQ/L (3.5-5.1); SODIUM LEVEL 142 MEQ/L (136-145); THYROID STIMULATING HORMONE 0.737 uIU/ML (0.358-3.740); TOTAL PROTEIN 6.4 GM/DL (6.4-8.2)
[2021-07-05] MEDS ORDERED: ISOVUE-370 76% 100ML VIAL As Ordered ONE (13:13)
[2021-07-05] MEDS ORDERED: PERCOCET 5MG/325MG TAB PO ONE (14:20)
[2021-07-05] MEDS ORDERED: predniSONE 20 MG TAB PO ONE (14:20)
[2021-07-05] MEDS ORDERED: LIDO5DIS41 TOP (14:21)
[2021-07-05] MEDS ORDERED: PERC5TAB12 PO (14:21)
[2021-07-05] MEDS ORDERED: PRED10TA2 PO (14:21)
[2021-07-05 14:45] VITALS: BP 141/72
[2021-07-05] MEDS ORDERED: **NOTE PATIENT COMMENT** MISC XX SCH (21:00)
== END 2021-07-05 15:07 | disposition home or self-care (01) ==
LOC: EDBD 11:40 → M ED 11:40
DX: S29.011A Strain of muscle and tendon of front wall of thorax, initial encounter (principal); X58.XXXA Exposure to other specified factors, initial encounter; Y92.9 Unspecified place or not applicable; Y93.9 Activity, unspecified; Y99.9 Unspecified external cause status; K21.9 Gastro-esophageal reflux disease without esophagitis; D64.9 Anemia, unspecified; Z98.84 Bariatric surgery status; Z79.899 Other long term (current) drug therapy
CPT/HCPCS: 71045; 71275; 80048; 80076; 82550; 82553; 83690; 84439; 84443; 84484; 85025; 93005; 93041; 94760; 96374; 99285; J2270; J7512; Q9967

== ENCOUNTER → 2021-08-03 | Outpatient (CLI) | payer BC ==
[~2021-08-03] MED LIST changes: +LIDO5DIS41 TOP; +PERC5TAB12 PO; +PRED10TA2 PO
== END ==
LOC: M LABSMTC 13:04
PROVIDERS: ATTEND Physician Assistant
DX: Z01.812 Encounter for preprocedural laboratory examination (principal); Z20.822 Contact with and (suspected) exposure to COVID-19

== ENCOUNTER → 2022-01-27 | Outpatient (CLI) | payer BC | LOC: M SOG 09:18 | PROVIDERS: ATTEND Orthopaedic Surgery Adult Reconstructive Orthopaedic Surgery | DX: M25.561 Pain in right knee (principal); M25.761 Osteophyte, right knee ==

== ENCOUNTER → 2022-06-10 | Outpatient (REF) | LOC: M LABSMTC 09:47 | PROVIDERS: ATTEND Family Medicine | DX: Z11.52 Encounter for screening for COVID-19 (principal) ==

== ENCOUNTER 2022-07-24 17:37 | Emergency (ER) | payer BC ==
[~2022-07-24] VITALS: Ht 165.1 cm; Wt 90.9 kg
[2022-07-24 18:39] LABS: HEMATOCRIT 35.6 % (36.0-47.0); MEAN CORPUSCULAR HEMOGLOBIN 31.9 pg (27.0-33.0); MEAN CORPUSCULAR HGB CONC 33.7 g/dl (32.0-36.5); MEAN CORPUSCULAR VOLUME 94.7 fl (80.0-96.0); PLATELET COUNT, AUTOMATED 275 10^3/uL (150-450); RED BLOOD COUNT 3.76 10^6/uL (4.00-5.40); WHITE BLOOD COUNT 6.8 10^3/uL (4.0-10.0)
[2022-07-24 19:11] LABS: BLOOD UREA NITROGEN 17 MG/DL (9-23); CALCIUM LEVEL 8.8 MG/DL (8.5-10.1); CARBON DIOXIDE LEVEL 25 MMOL/L (20-31); CHLORIDE LEVEL 109 MMOL/L (98-107); CREATININE FOR GFR 0.54 MG/DL (0.55-1.30); GLOMERULAR FILTRATION RATE > 60.0 (>51); GLUCOSE, FASTING 154 MG/DL (60-100); POTASSIUM SERUM 3.8 MMOL/L (3.5-5.1); SODIUM LEVEL 143 MMOL/L (136-145)
[2022-07-24 19:14] LABS: THYROID STIMULATING HORMONE 0.983 uIU/ML (0.55-4.78)
[2022-07-24 20:15] VITALS: BP 168/95
== END 2022-07-24 20:31 | disposition home or self-care (01) ==
LOC: M ED 17:37 → EDBD 17:37 → M ED 20:31
DX: I47.1 Supraventricular tachycardia (principal); E86.0 Dehydration; D50.9 Iron deficiency anemia, unspecified; K21.9 Gastro-esophageal reflux disease without esophagitis; F41.9 Anxiety disorder, unspecified; Z79.899 Other long term (current) drug therapy

== ENCOUNTER → 2022-11-23 | Outpatient (REF) | payer BC ==
[~2022-11-23] MED LIST changes: +LORA1TAB23; -LORA1TAB4
== END ==
LOC: M SFHCWAGY 18:12
PROVIDERS: ATTEND Nurse Practitioner Family
DX: Z12.4 Encounter for screening for malignant neoplasm of cervix (principal)
CPT/HCPCS: 87624; G0123

== ENCOUNTER → 2022-11-24 | Outpatient (CLI) | payer BC | LOC: M LAB 08:09 | PROVIDERS: ATTEND Nurse Practitioner Family | DX: Z01.419 Encounter for gynecological examination (general) (routine) without abnormal findings (principal); Z80.0 Family history of malignant neoplasm of digestive organs ==

== ENCOUNTER → 2022-11-24 | Outpatient (CLI) | payer BC ==
[2022-11-24 09:37] LABS: BASO % 0.6 % (0.0-1.0); EOS # 0.1 10^3/uL (0.0-0.5); HEMATOCRIT 37.6 % (36.0-47.0); HEMOGLOBIN 12.4 g/dl (12.0-15.5); LYMPH # 1.8 10^3/uL (1.5-5.0); LYMPH % 35.2 % (24.0-44.0); MEAN CORPUSCULAR HEMOGLOBIN 32.1 pg (27.0-33.0); MEAN CORPUSCULAR VOLUME 97.4 fl (80.0-96.0); MONO # 0.5 10^3/uL (0.0-0.8); MONO % 9.4 % (2.0-8.0); NEUTROPHILS # 2.6 10^3/uL (1.5-8.5); NEUTROPHILS % 52.4 % (36.0-66.0); PLATELET COUNT, AUTOMATED 317 10^3/uL (150-450); RED BLOOD COUNT 3.86 10^6/uL (4.00-5.40)
[2022-11-24 09:57] LABS: HEMOGLOBIN A1c 5.2 % (4.0-6.0)
[2022-11-24 10:02] LABS: ALBUMIN 3.9 G/DL (3.2-5.2); ALKALINE PHOSPHATASE 117 U/L (46-116); ALT/SGPT 18 U/L (7.0-40); AST/SGOT 13 U/L (<34); BILIRUBIN,TOTAL 0.4 MG/DL (0.3-1.2); BLOOD UREA NITROGEN 10 MG/DL (9-23); CALCIUM LEVEL 9.4 MG/DL (8.5-10.1); CARBON DIOXIDE LEVEL 29 MMOL/L (20-31); CHLORIDE LEVEL 106 MMOL/L (98-107); CHOLESTEROL LEVEL 181 MG/DL (<200); CHOLESTEROL RISK RATIO 1.83 (<5); CREATININE FOR GFR 0.53 MG/DL (0.55-1.30); GLOMERULAR FILTRATION RATE > 60.0 (>51); GLUCOSE, FASTING 94 MG/DL (60-100); HDL CHOLESTEROL 98.8 MG/DL (>40); IRON (FE) 78 UG/DL (50-170); LDL CHOLESTEROL 68.6 MG/DL (<100); NON-HDL-C 82.2 MG/DL; PERCENT SATURATION 22.2 % (13.2-45.0); POTASSIUM SERUM 4.7 MMOL/L (3.5-5.1); SODIUM LEVEL 139 MMOL/L (136-145); TOTAL IRON BINDING CAPACITY 352 UG/DL (250-425); TOTAL PROTEIN 6.7 G/DL (5.7-8.2); TRIGLYCERIDES LEVEL 68 MG/DL (<150)
[2022-11-24 10:04] LABS: FERRITIN 28.8 NG/ML (7.3-270.7); FOLATE 23.2 NG/ML (>5.4)
[2022-11-24 10:05] LABS: TOTAL 25(OH) VITAMIN D 48.4 NG/ML (20.0-100.0)
[2022-11-24 10:09] LABS: VITAMIN B12 LEVEL 302 PG/ML (211-911)
== END ==
LOC: M LAB 08:12
PROVIDERS: ATTEND Family Medicine
DX: Z00.00 Encounter for general adult medical examination without abnormal findings (principal); Z98.84 Bariatric surgery status

== ENCOUNTER → 2023-03-22 | Outpatient (CLI) | payer BC ==
[~2023-03-22] MED LIST changes: +BUPR150T12; +LIDOCAINE 1% MDV 20ML VIAL As Ordered ONE; +NATU1TAB5 PO
[2023-03-22 13:10] VITALS: TEMP 99.3
[2023-03-22 13:52] LABS: BASO % 0.6 % (0.0-1.0); EOS # 0.1 10^3/uL (0.0-0.5); EOS % 1.8 % (0.0-3.0); HEMATOCRIT 36.8 % (36.0-47.0); HEMOGLOBIN 12.5 g/dl (12.0-15.5); LYMPH # 2.6 10^3/uL (1.5-5.0); LYMPH % 39.4 % (24.0-44.0); MEAN CORPUSCULAR HEMOGLOBIN 32.9 pg (27.0-33.0); MEAN CORPUSCULAR VOLUME 96.8 fl (80.0-96.0); MONO # 0.5 10^3/uL (0.0-0.8); MONO % 7.8 % (2.0-8.0); NEUTROPHILS # 3.3 10^3/uL (1.5-8.5); NEUTROPHILS % 50.2 % (36.0-66.0); PLATELET COUNT, AUTOMATED 288 10^3/uL (150-450); WHITE BLOOD COUNT 6.5 10^3/uL (4.0-10.0)
[2023-03-22 14:35] VITALS: BP 131/73; O2SAT 96
== END ==
LOC: M IRPRO 13:02
PROVIDERS: ATTEND Specialist
DX: C91.10 Chronic lymphocytic leukemia of B-cell type not having achieved remission (principal)

== ENCOUNTER → 2023-04-13 | Outpatient (REF) ==
[~2023-04-13] MED LIST changes: -LIDOCAINE 1% MDV 20ML VIAL As Ordered ONE
== END ==
LOC: M EMP 11:16
PROVIDERS: ATTEND Family Medicine
DX: Z11.52 Encounter for screening for COVID-19 (principal)

== ENCOUNTER 2023-11-23 19:59 | Emergency (ER) | payer BC ==
[~2023-11-23] VITALS: Ht 165.1 cm; Wt 98.4 kg
[~2023-11-23 19:59] MED LIST changes: -BUPR150T12; +BUPR150T12 PO; +LORA1TAB23 PO; +VITA100093 PO
[2023-11-23 20:39] LABS: BASO % 0.4 % (0.0-1.0); EOS # 0.1 10^3/uL (0.0-0.5); LYMPH # 1.9 10^3/uL (1.5-5.0); LYMPH % 39.4 % (24.0-44.0); MEAN CORPUSCULAR HEMOGLOBIN 32.4 pg (27.0-33.0); MEAN CORPUSCULAR HGB CONC 34.2 g/dl (32.0-36.5); MEAN CORPUSCULAR VOLUME 94.8 fl (80.0-96.0); MONO # 0.4 10^3/uL (0.0-0.8); MONO % 8.5 % (2.0-8.0); NEUTROPHILS # 2.4 10^3/uL (1.5-8.5); NEUTROPHILS % 49.5 % (36.0-66.0); RED BLOOD COUNT 4.01 10^6/uL (4.00-5.40); WHITE BLOOD COUNT 4.9 10^3/uL (4.0-10.0)
[2023-11-23 21:05] LABS: PLATELET COUNT, AUTOMATED 195 10^3/uL (150-450)
[2023-11-23 21:24] LABS: BLOOD UREA NITROGEN 15 MG/DL (9-23); CARBON DIOXIDE LEVEL 22 MMOL/L (20-31); CHLORIDE LEVEL 108 MMOL/L (98-107); CK-MB VALUE MASS < 1.0 NG/ML (<3.6); CPK CREATINE PHOSPHOKINASE 107 U/L (34-145); FREE T4 1.08 NG/DL (0.89-1.76); GLOMERULAR FILTRATION RATE > 60.0 (>51); GLUCOSE, FASTING 109 MG/DL (60-100); MAGNESIUM LEVEL 1.9 MG/DL (1.8-2.4); MB/CK RELATIVE INDEX 0.93 (< OR =4); POTASSIUM SERUM 4.8 MMOL/L (3.5-5.1); SODIUM LEVEL 140 MMOL/L (136-145)
[2023-11-23 21:30] VITALS: BP 141/82; TEMP 98.2; O2SAT 97
== END 2023-11-23 21:50 | disposition home or self-care (01) ==
LOC: M ED 19:59 → EDBD 19:59 → M ED 21:50
DX: I47.10 Supraventricular tachycardia, unspecified (principal); F32.A Depression, unspecified; C83.04 Small cell B-cell lymphoma, lymph nodes of axilla and upper limb; Z85.3 Personal history of malignant neoplasm of breast; Z79.899 Other long term (current) drug therapy

== ENCOUNTER → 2023-11-28 | Outpatient (CLI) | payer BC ==
[2023-11-28 15:05] LABS: LUTEINIZING HORMONE 45.1 mIU/ML
[2023-11-28 15:06] LABS: ESTRADIOL < 19.0 PG/ML; FOLLICLE STIMULATING HORMONE 80.4 mIU/ML; PROGESTERONE 0.26 NG/ML
[2023-11-30 13:52] LABS: HPV APTIMA Not Detected (Not Detected)
== END ==
LOC: M PLALAB 11:10
PROVIDERS: ATTEND Nurse Practitioner Family
DX: Z12.4 Encounter for screening for malignant neoplasm of cervix (principal); N95.1 Menopausal and female climacteric states; Z77.9 Other contact with and (suspected) exposures hazardous to health; R87.612 Low grade squamous intraepithelial lesion on cytologic smear of cervix (LGSIL)
CPT/HCPCS: 36415; 82670; 83001; 83002; 84144; 84146; 84402; 84403; 87624; G0123

== ENCOUNTER → 2024-01-27 | Outpatient (CLI) | payer BC ==
[2024-01-27 14:02] LABS: URIC ACID 4.4 MG/DL (3.1-7.8)
[2024-01-27 14:04] LABS: C REACTIVE PROTEIN QUANTITATIV < 0.40 MG/DL (<1.0)
[2024-01-27 14:05] LABS: IRON (FE) 111 UG/DL (50-170); PERCENT SATURATION 31.3 % (13.2-45.0); TOTAL IRON BINDING CAPACITY 355 UG/DL (250-425)
[2024-01-27 14:07] LABS: FERRITIN 15.8 NG/ML (7.3-270.7)
[2024-01-27 14:08] LABS: TOTAL 25(OH) VITAMIN D 55.4 NG/ML (20.0-100.0)
[2024-01-27 14:12] LABS: VITAMIN B12 LEVEL > 2000 PG/ML (211-911)
[2024-01-30 09:28] LABS: INSULIN TOTAL2 3.4 uIU/mL (<=18.4)
[2024-01-30 14:28] LABS: ANA SCREEN, IFA NEGATIVE (NEGATIVE)
[2024-01-30 23:48] LABS: CYCLIC CITRULLINATED PEPTIDE < 16 UNITS (<20)
== END ==
LOC: M LAB 12:41
PROVIDERS: ATTEND Registered Nurse
DX: R53.83 Other fatigue (principal)

== ENCOUNTER → 2024-02-13 | Outpatient (CLI) | payer BC ==
[~2024-02-13] MED LIST changes: +CARV3.12; +GASTROGRAFIN SOLUTION 30ML As Ordered ONE
== END ==
LOC: M RAD 13:06
PROVIDERS: ATTEND Internal Medicine Medical Oncology
DX: C83.04 Small cell B-cell lymphoma, lymph nodes of axilla and upper limb (principal)
CPT/HCPCS: 70491; 71260; 74178; Q9963

== ENCOUNTER 2024-03-16 06:32 | Day surgery (SDC) | payer BC ==
[~2024-03-16] VITALS: Ht 165.1 cm; Wt 95.3 kg
[~2024-03-16 06:32] MED LIST changes: -CARV3.12; +CARV3.12 PO; -FLUO40CA; +FLUO40CA PO; -GASTROGRAFIN SOLUTION 30ML As Ordered ONE
[2024-03-16] MEDS: NS 1,000 ML IV ONE (07:06)
[2024-03-16] MEDS ORDERED: propofoL 500 MG/50 ML VIAL As Ordered ONE (07:44)
[2024-03-16] MEDS ORDERED: LIDOCAINE 2% 100MG/5ML SDV (FOR ANES.) As Ordered ONE (07:44)
[2024-03-16 08:07] VITALS: TEMP 98.9
[2024-03-16 08:23] VITALS: BP 136/71; O2SAT 97
== END 2024-03-16 08:34 | disposition home or self-care (01) ==
LOC: M OPP 06:32
PROVIDERS: ATTEND Internal Medicine Gastroenterology
DX: Z12.11 Encounter for screening for malignant neoplasm of colon (principal); K63.5 Polyp of colon; K21.9 Gastro-esophageal reflux disease without esophagitis; Z98.84 Bariatric surgery status; Z79.899 Other long term (current) drug therapy; I47.10 Supraventricular tachycardia, unspecified; Z85.6 Personal history of leukemia; Z90.89 Acquired absence of other organs; Z80.0 Family history of malignant neoplasm of digestive organs

== ENCOUNTER → 2024-04-06 | Outpatient (CLI) | payer BC | LOC: M RAD 14:41 | PROVIDERS: ATTEND Pain Medicine Interventional Pain Medicine | DX: M16.0 Bilateral primary osteoarthritis of hip (principal); M51.360 Other intervertebral disc degeneration, lumbar region with discogenic back pain only; M54.16 Radiculopathy, lumbar region ==

== ENCOUNTER → 2024-04-23 | Outpatient (CLI) | payer BC | LOC: M PLARAD 15:58 | PROVIDERS: ATTEND Internal Medicine Hematology & Oncology | DX: C83.00 Small cell B-cell lymphoma, unspecified site (principal) | CPT/HCPCS: 78815; A9552 ==

== ENCOUNTER 2024-05-09 08:53 | Outpatient (RCR) | payer BC | END 2024-05-19 | LOC: M PT 08:53 | PROVIDERS: ATTEND Orthopaedic Surgery | DX: Z01.818 Encounter for other preprocedural examination (principal); M16.12 Unilateral primary osteoarthritis, left hip; M25.552 Pain in left hip ==

== ENCOUNTER → 2024-05-09 | Outpatient (CLI) | payer BC ==
[2024-05-09 11:35] LABS: BASO # 0.1 10^3/uL (0.0-0.2); BASO % 0.7 % (0.0-1.0); EOS # 0.1 10^3/uL (0.0-0.5); EOS % 1.3 % (0.0-3.0); HEMATOCRIT 38.9 % (36.0-47.0); HEMOGLOBIN 13.1 g/dl (12.0-15.5); LYMPH # 3.3 10^3/uL (1.5-5.0); LYMPH % 42.6 % (24.0-44.0); MEAN CORPUSCULAR HEMOGLOBIN 32.1 pg (27.0-33.0); MEAN CORPUSCULAR HGB CONC 33.7 g/dl (32.0-36.5); MEAN CORPUSCULAR VOLUME 95.3 fl (80.0-96.0); MONO # 0.6 10^3/uL (0.0-0.8); MONO % 7.8 % (2.0-8.0); NEUTROPHILS # 3.6 10^3/uL (1.5-8.5); NEUTROPHILS % 47.3 % (36.0-66.0); PLATELET COUNT, AUTOMATED 295 10^3/uL (150-450); RED BLOOD COUNT 4.08 10^6/uL (4.00-5.40); WHITE BLOOD COUNT 7.7 10^3/uL (4.0-10.0)
[2024-05-09 12:00] LABS: ALBUMIN 3.9 G/DL (3.2-5.2)
[2024-05-09 12:07] LABS: FERRITIN 13.2 NG/ML (7.3-270.7)
[2024-05-09 12:09] LABS: PERCENT SATURATION 38.1 % (13.2-45.0)
== END ==
LOC: M LAB 10:30
PROVIDERS: ATTEND Orthopaedic Surgery
DX: Z01.818 Encounter for other preprocedural examination (principal); M16.9 Osteoarthritis of hip, unspecified; M25.552 Pain in left hip

== ENCOUNTER → 2024-05-30 | Outpatient (CLI) | payer BC ==
[2024-05-30 17:55] LABS: BASO % 0.5 % (0.0-1.0); EOS # 0.1 10^3/uL (0.0-0.5); EOS % 1.4 % (0.0-3.0); HEMATOCRIT 38.1 % (36.0-47.0); HEMOGLOBIN 12.8 g/dl (12.0-15.5); LYMPH # 3.9 10^3/uL (1.5-5.0); LYMPH % 47.1 % (24.0-44.0); MEAN CORPUSCULAR HEMOGLOBIN 31.6 pg (27.0-33.0); MEAN CORPUSCULAR HGB CONC 33.6 g/dl (32.0-36.5); MEAN CORPUSCULAR VOLUME 94.1 fl (80.0-96.0); MONO # 0.5 10^3/uL (0.0-0.8); MONO % 5.7 % (2.0-8.0); NEUTROPHILS # 3.7 10^3/uL (1.5-8.5); NEUTROPHILS % 45.1 % (36.0-66.0); PLATELET COUNT, AUTOMATED 260 10^3/uL (150-450); RED BLOOD COUNT 4.05 10^6/uL (4.00-5.40); WHITE BLOOD COUNT 8.3 10^3/uL (4.0-10.0)
[2024-05-30 17:58] LABS: APPEARANCE, URINE CLEAR (CLEAR); BACTERIA, URINE AUTO NEGATIVE (NEGATIVE); BILIRUBIN, URINE AUTO NEGATIVE (NEGATIVE); BLOOD, URINE BLOOD NEGATIVE (NEGATIVE); COLOR, URINE YELLOW (YELLOW); GLUCOSE, URINE (UA) AUTO NEGATIVE (NEGATIVE); KETONE, URINE AUTO NEGATIVE (NEGATIVE); LEUKOCYTE ESTERASE, URINE AUTO TRACE (NEGATIVE); NITRITE, URINE AUTO NEGATIVE (NEGATIVE); PROTEIN, URINE AUTO NEGATIVE (NEGATIVE); RBC, URINE AUTO 1 /HPF (0-3); SPECIFIC GRAVITY URINE AUTO 1.015 (1.002-1.035); SQUAMOUS EPITHELIAL CELL UR AU 1 /HPF (0-6); WBC, URINE AUTO 1 /HPF (0-3)
[2024-05-30 18:27] LABS: ALBUMIN 3.7 G/DL (3.2-5.2); ALKALINE PHOSPHATASE 115 U/L (35-104); ALT/SGPT 14 U/L (7.0-40); AST/SGOT 13 U/L (<34); BILIRUBIN,TOTAL 0.3 MG/DL (0.3-1.2); BLOOD UREA NITROGEN 14 MG/DL (9-23); CALCIUM LEVEL 9.6 MG/DL (8.5-10.1); CARBON DIOXIDE LEVEL 26 MMOL/L (20-31); CHLORIDE LEVEL 106 MMOL/L (98-107); CREATININE FOR GFR 0.61 MG/DL (0.55-1.30); GLOMERULAR FILTRATION RATE > 60.0 (>51); GLUCOSE, FASTING 139 MG/DL (60-100); POTASSIUM SERUM 3.9 MMOL/L (3.5-5.1); SODIUM LEVEL 141 MMOL/L (136-145); TOTAL PROTEIN 6.8 G/DL (5.7-8.2)
== END ==
LOC: M LAB 16:02
PROVIDERS: ATTEND Nurse Practitioner Family
DX: Z01.818 Encounter for other preprocedural examination (principal)

== ENCOUNTER → 2024-08-21 | Outpatient (CLI) | payer BC ==
[~2024-08-21] MED LIST changes: +IRON65TA2 PO; +METH-1165
== END ==
LOC: M PLARAD 15:00
PROVIDERS: ATTEND Internal Medicine Hematology & Oncology
DX: C83.04 Small cell B-cell lymphoma, lymph nodes of axilla and upper limb (principal)
CPT/HCPCS: 78815; A9552

== ENCOUNTER → 2024-10-05 | Outpatient (CLI) | payer BC ==
[~2024-10-05] VITALS: Ht 162.6 cm; Wt 77.1 kg
[~2024-10-05] MED LIST changes: +ALLO100T PO; +ONDA-284 PO; +PROC10TA5 PO; +VENC100T PO; +VENC1TAB PO; +VENCLEXTA PO
[2024-10-05 13:07] VITALS: TEMP 97.6
[2024-10-05] MEDS: ceFAZolin SODIUM 2 GM in DEXTROSE 5% (D5W) ADV/MINI-BAG 50 ML IV ONE (14:51)
[2024-10-05] MEDS: NS (Normal Saline) 0.9% 1,000 ML IV SCH (14:51)
[2024-10-05] MEDS: LIDOCAINE 1% MDV 20ML VIAL SC SCH (14:53)
[2024-10-05 15:20] VITALS: BP 142/81; O2SAT 96
== END ==
LOC: M IRPRO 13:00
PROVIDERS: ATTEND Specialist
DX: C83.04 Small cell B-cell lymphoma, lymph nodes of axilla and upper limb (principal)
CPT/HCPCS: 36561; J0690; J1642

== ENCOUNTER → 2025-04-06 | Outpatient (CLI) | payer BC ==
[~2025-04-06] MED LIST changes: +ACYC-438 PO; +CEPH500C PO; +LIDO1ADH93 TOP; -LIDO5DIS41 TOP; +MIDAZOLAM INJ 2 MG/2 ML VIAL IV PRN; +NS (Normal Saline) 0.9% 1,000 ML IV SCH; +ceFAZolin SODIUM 2 GM in DEXTROSE 5% (D5W) ADV/MINI-BAG 50 ML IV ONE
[2025-04-06 07:54] VITALS: TEMP 98.9
[2025-04-06] MEDS: CEPHALEXIN 500 MG CAP PO ONE (08:05)
[2025-04-06 08:46] VITALS: BP 140/90; O2SAT 96
[2025-04-06] MEDS: LIDOCAINE 1% MDV 20 ML VIAL SC SCH (08:46)
== END ==
LOC: M IRPRO 07:48
PROVIDERS: ATTEND Specialist
DX: C83.30 Diffuse large B-cell lymphoma, unspecified site (principal)

== ENCOUNTER → 2025-04-22 | Outpatient (POV) | payer BC ==
[~2025-04-22] MED LIST changes: -MIDAZOLAM INJ 2 MG/2 ML VIAL IV PRN; -NS (Normal Saline) 0.9% 1,000 ML IV SCH; -ceFAZolin SODIUM 2 GM in DEXTROSE 5% (D5W) ADV/MINI-BAG 50 ML IV ONE
== END ==
LOC: M IRPOV 09:08
PROVIDERS: ATTEND Registered Nurse School
DX: Z48.812 Encounter for surgical aftercare following surgery on the circulatory system (principal); Z92.21 Personal history of antineoplastic chemotherapy; Z85.72 Personal history of non-Hodgkin lymphomas